=== PATIENT | female | born 1975 | race Two or more races ===

== ENCOUNTER 2024-08-15 21:04 | Emergency (ER) | payer OTHER ==
[~2024-08-15] VITALS: Ht 162.6 cm; Wt 63.5 kg
[2024-08-15] MEDS ORDERED: ZYPREXA2.5 MG PO (21:13)
[2024-08-15] MEDS ORDERED: CLONAZEPAM2 MG PO (21:13)
[2024-08-15] MEDS ORDERED: PROZAC20 MG PO (21:14)
[2024-08-15] MEDS ORDERED: ONDANSETRON HCL 2 MG/ML VIAL IV ONE (22:00)
[2024-08-15] MEDS ORDERED: 0.9 % SODIUM CHLORIDE 1,000 ML IV ONE (22:00)
[2024-08-15 23:08] LABS: HEMOGLOBIN 14.3 g/dL (12.0-15.00); MEAN CELL VOLUME 87.9 fL (80.00-100.00); MEAN CORPUSCULAR HGB CONC 34.1 g/dl (32.0-36.0); PLATELET COUNT 215 K/uL (150-450); RED BLOOD COUNT 4.78 M/uL (4.00-6.00)
[2024-08-15 23:31] LABS: ALBUMIN 3.3 gm/dL (3.4-5.0); BILIRUBIN TOTAL 1.58 mg/dL (0.3-1.2); CALCIUM 8.7 mg/dL (8.5-10.1); CREATININE SERUM 0.85 mg/dL (0.55-1.02); GFR 71.08; GLOBULINA 4.1 G/DL (2.4-3.5); POTASSIUM 3.19 mEq/L (3.5-5.1); TOTAL PROTEIN 7.4 gm/dL (6.4-8.2)
[2024-08-15] MEDS ORDERED: DEXAMETHASONE SODIUM PHOSPHATE 4 MG/ML VIAL IV ONE (23:45)
[2024-08-15] MEDS ORDERED: DIPHENHYDRAMINE HCL 50 MG/ML VIAL 1ML IV ONE (23:45)
[2024-08-16] MEDS ORDERED: PEPCID AC20 MG PO (01:59)
[2024-08-16] MEDS ORDERED: ONDANSETRON ODT8 MG PO (02:16)
[2024-08-16] MEDS ORDERED: DICY20TA PO (02:16)
== END 2024-08-16 02:25 | disposition home or self-care (01) ==
LOC: ER 21:06
PROVIDERS: General Practice
DX: R11.10 Vomiting, unspecified (principal); Z20.822 Contact with and (suspected) exposure to COVID-19; Z88.5 Allergy status to narcotic agent